=== PATIENT | female | born 1935 | race African-American/Black ===

== ENCOUNTER 2023-11-09 14:02 | Emergency (ER) | payer OTHER ==
[~2023-11-09] VITALS: Ht 172.7 cm; Wt 82.0 kg
[2023-11-09 14:09] VITALS: O2SAT 99
[2023-11-09 14:28] LABS: BASOPHILS % 0.7 % (0.0-2.0); EOSINOPHILS % 0.2 % (0.0-5.0); HEMATOCRIT. 33.2 % (36.0-48.0); HEMOGLOBIN. 10.7 g/dL (12.0-16.0); LYMPHOCYTES % 12.6 % (20.0-50.0); MEAN CORPUSCULAR HEMOGLOBIN 26.7 pg (28.0-32.0); MEAN CORPUSCULAR HGB CONC 32.1 g/dL (31.0-37.0); MEAN PLATELET VOLUME 9.2 fl (7.4-10.4); MONOCYTES % 7.3 % (2.0-8.0); NEUTROPHILS % 79.2 % (40.0-76.0); PLATELET 211 x1000/uL (130-400); RED BLOOD CELL COUNT 3.99 mill/uL (4.2-5.4); RED CELL DISTRIBUTION WIDTH 15.8 % (11.6-14.6); WHITE BLOOD COUNT 5.8 x1000/uL (4.5-11.0)
[2023-11-09 14:33] LABS: CHLORIDE 107 mEq/L (98-107); POTASSIUM 3.5 mEq/L (3.5-5.1); SODIUM 144 mEq/L (136-145)
[2023-11-09 14:34] LABS: CARBON DIOXIDE 28 mEq/L (21-32)
[2023-11-09 14:35] LABS: CALCIUM 9.3 mg/dL (8.7-10.4)
[2023-11-09 14:36] LABS: INR 1.8; PROTHROMBIN TIME 19.4 sec (9.6-11.0)
[2023-11-09 14:39] LABS: CREATININE 1.3 mg/dL (0.6-1.0); GLUCOSE 105 mg/dL (70-105); UREA NITROGEN BLOOD 34 mg/dL (9-23)
[2023-11-09 14:40] LABS: TROPONIN I HIGH SENSITIVITY 16 ng/L (3.0-34)
[2023-11-09 14:41] LABS: CREATINE KINASE 529 IU/L (34-145)
[2023-11-09] MEDS: SODIUM CHLORIDE 0.9% 500 ML IV ONE (14:49)
[2023-11-09] MEDS: SODIUM CHLORIDE 0.9% 1,000 ML IV ONE (16:52)
[2023-11-09 22:26] VITALS: BP 160/79; PULSE 65; RESP 15; TEMP 36.78072; O2SAT 99
== END 2023-11-09 23:11 | disposition short-term general hospital (02) ==
LOC: ER 14:02 → EDBEDREQ 17:13 → CANBEDREQ 19:17 → EDBEDREQTM 21:30 → EDBEDREQSVC 21:30 → ER 23:11
DX: N28.9 Disorder of kidney and ureter, unspecified (principal); M62.82 Rhabdomyolysis; E86.0 Dehydration; F41.9 Anxiety disorder, unspecified; I50.9 Heart failure, unspecified
CPT/HCPCS: 99285; 70450; 71045; 80048; 82550; 83880; 83605; 85025; 85610; 84484; 36415; 73522; 93005; J7040; J7030